=== PATIENT | male | born 1990 | race Two or more races ===

== ENCOUNTER → 2023-11-01 10:22 | Outpatient (BNVA) | payer OTHER, SELFPAY | PROVIDERS: Visit Provider Physician Assistant Medical | DX: T78.49XA Other allergy, initial encounter (principal); W44.8XXA Other foreign body entering into or through a natural orifice, initial encounter | CPT/HCPCS: 92002; 99203 ==

== ENCOUNTER → 2023-11-03 08:55 | Outpatient (BNVA) | payer OTHER, SELFPAY | PROVIDERS: Visit Provider Physician Assistant | DX: R21 Rash and other nonspecific skin eruption (principal) | CPT/HCPCS: 99214 ==